=== PATIENT | female | born 1945 | race Caucasian/White ===

== ENCOUNTER 2021-11-26 10:24 | Outpatient (CLI) | payer MEDICARE, BC | END 2021-11-26 10:25 | disposition home or self-care (01) | LOC: CSHCT 10:24 | PROVIDERS: ATTEND Physician Assistant Medical | DX: R10.13 Epigastric pain (principal); K63.89 Other specified diseases of intestine | CPT/HCPCS: 74177; 82565 ==

== ENCOUNTER 2022-11-11 15:21 | Outpatient (CLI) | payer MEDICARE, BC | END 2022-11-11 15:22 | disposition home or self-care (01) | LOC: CSHCT 15:21 | PROVIDERS: ATTEND Allergy & Immunology | DX: J84.10 Pulmonary fibrosis, unspecified (principal); R06.02 Shortness of breath | CPT/HCPCS: 71250 ==

== ENCOUNTER 2023-03-09 08:40 | Outpatient (CLI) | payer MEDICARE, BC ==
[2023-03-09] MEDS ORDERED: Iopamidol 300 61% 100 ML VIAL FS ONE (10:46)
== END 2023-03-09 08:41 | disposition home or self-care (01) ==
LOC: CSHCT 08:40
PROVIDERS: ATTEND Internal Medicine Gastroenterology
DX: K21.9 Gastro-esophageal reflux disease without esophagitis (principal); K44.9 Diaphragmatic hernia without obstruction or gangrene; R07.9 Chest pain, unspecified; Z98.890 Other specified postprocedural states; Z97.8 Presence of other specified devices; K22.89 Other specified disease of esophagus
CPT/HCPCS: 71260; 74160; 82565

== ENCOUNTER 2024-02-21 10:13 | Outpatient (CLI) | payer MEDICARE | END 2024-02-21 10:14 | disposition home or self-care (01) | LOC: CSHMAMMO 10:13 | PROVIDERS: ATTEND Internal Medicine Endocrinology, Diabetes & Metabolism | DX: M81.8 Other osteoporosis without current pathological fracture (principal); M85.89 Other specified disorders of bone density and structure, multiple sites | CPT/HCPCS: 77080 ==

== ENCOUNTER 2024-05-05 09:01 | Outpatient (CLI) | payer MEDICARE | END 2024-05-05 09:02 | disposition home or self-care (01) | LOC: CSHCT 09:01 | PROVIDERS: ATTEND Internal Medicine Gastroenterology | DX: K59.00 Constipation, unspecified (principal); K57.90 Diverticulosis of intestine, part unspecified, without perforation or abscess without bleeding; J98.8 Other specified respiratory disorders | CPT/HCPCS: 36415; 74177; 82565 ==